=== PATIENT | male | born 1970 | race Hispanic/Latino ===

== ENCOUNTER 2022-10-04 17:16 | Emergency (ER) | payer OTHER ==
[~2022-10-04] VITALS: Ht 182.9 cm; Wt 117.9 kg
[2022-10-04 17:32] LABS: BASOPHILS % (AUTO) 0.6 % (0.0-5.0); EOSINOPHILS % (AUTO) 5.5 % (0.0-8.0); HEMATOCRIT 42.1 % (42-54); MEAN CORPUSCULAR HEMOGLOBIN 31.3 pg (27.0-33.0); MEAN CORPUSCULAR HGB CONC 34.7 g/dL (32.0-36.0); MEAN CORPUSCULAR VOLUME 90.3 fL (79-99); MONOCYTES % (AUTO) 4.9 % (3.0-13.0); NEUTROPHILS % (AUTO) 59.3 % (40.0-77.0); PLATELET COUNT (AUTO) 369 K/uL (130-400); RED BLOOD CELL COUNT(AUTO) 4.66 MIL/uL (4.50-6.20); RED CELL DISTRIBUTION WIDTH 12.1 % (11.0-15.5); WHITE BLOOD COUNT (AUTO) 10.8 K/uL (4.8-10.8)
[2022-10-04 17:43] LABS: ALBUMIN 3.4 g/dL (3.5-5.0); CREATININE 0.9 mg/dL (0.5-1.5)
[2022-10-04 17:46] LABS: POTASSIUM 2.7 mmol/L (3.5-5.1)
[2022-10-04 17:47] LABS: TOTAL PROTEIN, SERUM 7.3 g/dL (6.0-8.3)
[2022-10-04] MEDS ORDERED: POTASSIUM BICARB/CIT AC 25 MEQ TABLET.EFF PO STA (17:50)
[2022-10-04] MEDS ORDERED: POTASSIUM CHLORIDE 20 MEQ/100 ML BAG IV STA (17:50)
[2022-10-04 18:56] LABS: AMPHET/METH SCREEN,URINE NEGATIVE (NEGATIVE); BARBITURATE SCREEN, URINE NEGATIVE (NEGATIVE); BENZODIAZEPINES SCREEN,URINE POSITIVE (NEGATIVE); CANNABINOID SCREEN,URINE NEGATIVE (NEGATIVE); COCAINE SCREEN,URINE POSITIVE (NEGATIVE); OPIATE SCREEN,URINE NEGATIVE (NEGATIVE); PHENCYCLIDINE SCREEN,URINE NEGATIVE (NEGATIVE)
[2022-10-04 18:58] LABS: APPEARANCE,URINE CLEAR (CLEAR); BILIRUBIN,URINE NEGATIVE (NEGATIVE); COLOR,URINE YELLOW (YELLOW); GLUCOSE, URINE (UA) >=1000 mg/dL (NEGATIVE); KETONES,URINE 5 mg/dL (NEGATIVE); LEUKOCYTE ESTERASE ,URINE NEGATIVE Leu/uL (NEGATIVE); NITRATE,URINE NEGATIVE (NEGATIVE); OCCULT BLOOD,URINE NEGATIVE (NEGATIVE); PH,URINE 5.5 (5.0-8.0); PROTEIN,URINE NEGATIVE (NEGATIVE); UROBILINOGEN,URINE 0.2 mg/dL (0.2-1.0)
[2022-10-04 18:59] LABS: MUCUS,URINE RARE LPF (None Seen); SQUAMOUS EPITHELIAL CELL,UR RARE /HPF (0-2)
[2022-10-04] MEDS: MAGNESIUM 2GM PREMIX 50ML 50 ML IV SCH ×2 (19:08→22:09)
[2022-10-04] MEDS ORDERED: LORAZEPAM 2 MG/ML 1 ML VIAL IVP ONE (21:30)
[2022-10-04 21:53] LABS: ALBUMIN 2.9 g/dL (3.5-5.0); MAGNESIUM 1.6 mg/dL (1.80-2.40); POTASSIUM 3.3 mmol/L (3.5-5.1); TOTAL PROTEIN, SERUM 6.2 g/dL (6.0-8.3)
[2022-10-04] MEDS ORDERED: POTASSIUM BICARB/CIT AC 25 MEQ TABLET.EFF PO ONE (22:30)
[2022-10-04] MEDS ORDERED: MAGNESIUM 2GM PREMIX 50ML 50 ML IV SCH (22:30)
[2022-10-05 00:03] VITALS: BP 127/65
== END 2022-10-05 00:24 | disposition home or self-care (01) ==
LOC: EDH 17:16
DX: F14.10 Cocaine abuse, uncomplicated (principal); F10.10 Alcohol abuse, uncomplicated; I10 Essential (primary) hypertension
CPT/HCPCS: 99285; 96374; 71045; 96361; 96375; 83735 ×2; 84484 ×2; 80305; 85025; 36415; 96376; 93005; 81001; 80053 ×2; J3475 ×2; J2060; J3480

== ENCOUNTER 2023-12-11 07:00 | Day surgery (SDC) | payer OTHER ==
[2023-12-09 09:07] LABS: BASOPHILS % (AUTO) 1.1 % (0.0-5.0); EOSINOPHILS # (AUTO) 0.46 K/uL (0.00-0.70); EOSINOPHILS % (AUTO) 4.9 % (0.0-8.0); HEMATOCRIT 42.3 % (42-54); IMMATURE GRANULOCYTE ABSOLUTE 0.05 K/uL (0-1); LYMPHOCYTES # (AUTO) 3.6 K/uL (1.0-4.8); LYMPHOCYTES % (AUTO) 38.5 % (21.0-51.0); MEAN CORPUSCULAR HEMOGLOBIN 30.7 pg (27.0-33.0); MEAN CORPUSCULAR VOLUME 87.8 fL (79-99); MONOCYTES # (AUTO) 0.6 K/uL (0.1-1.0); MONOCYTES % (AUTO) 6.7 % (3.0-13.0); NEUTROPHILS # (AUTO) 4.5 K/uL (1.8-7.7); NEUTROPHILS % (AUTO) 48.3 % (40.0-77.0); PLATELET COUNT (AUTO) 348 K/uL (130-400); RED BLOOD CELL COUNT(AUTO) 4.82 MIL/uL (4.50-6.20); RED CELL DISTRIBUTION WIDTH 12.3 % (11.0-15.5); WHITE BLOOD COUNT (AUTO) 9.4 K/uL (4.8-10.8)
[2023-12-09 09:16] VITALS: BP 158/86; PULSE 73; RESP 21
[2023-12-09 09:23] LABS: CREATININE 0.9 mg/dL (0.5-1.3); INR <= 0.93 (0.85-1.15); POTASSIUM 4.5 mmol/L (3.5-5.1); PROTHROMBIN TIME 10.3 SEC (9.6-11.6)
[~2023-12-11] VITALS: Ht 177.8 cm; Wt 119.6 kg
[2023-12-11] VITALS (16 sets, daily range): BP systolic 110–142; BP diastolic 60–88; PULSE 70–86; RESP 14–18
[~2023-12-11 07:00] MED LIST: CIME400T PO; HYDR-3422 PO; HYDR50TA PO; LISI40TA9 PO; PARO10TA71 PO
[2023-12-11] MEDS ORDERED: CEFAZOLIN SODIUM 2 GM VIAL ONE (07:22)
[2023-12-11] MEDS ORDERED: CEFAZOLIN SODIUM 1 GM VIAL ONE (07:23)
[2023-12-11] MEDS ORDERED: FAMOTIDINE 20MG VIAL IV ONE (07:33)
[2023-12-11] MEDS ORDERED: HYDROMORPHONE 1 MG INJ ONE (07:33)
[2023-12-11] MEDS ORDERED: PHENYLEPHRINE HCL 10 MG/ML 1ML VIAL IV ONE (07:41)
[2023-12-11] MEDS ORDERED: SUCCINYLCHOLINE CHLORIDE 20 MG/ML 10 ML VIAL ONE (07:45)
[2023-12-11] MEDS ORDERED: ROCURONIUM BROMIDE 10MG/1ML 5ML VL ONE (07:45)
[2023-12-11] MEDS ORDERED: LIDOCAINE PF 100MG/5ML (2%) SYRINGE 5ML ONE (07:45)
[2023-12-11] MEDS ORDERED: FENTANYL CITRATE PF 50 MCG/1 ML 5ML AMP IV ONE (07:45)
[2023-12-11] MEDS ORDERED: MIDAZOLAM HCL 1 MG/ML 2ML VIAL ONE (07:47)
[2023-12-11] MEDS ORDERED: PROPOFOL 10 MG/ML 20ML VIAL IV ONE (07:48)
[2023-12-11] MEDS: CEFAZOLIN SODIUM 2 GM VIAL IVPB ONE (08:33)
[2023-12-11] MEDS ORDERED: BUPIVACAINE/PF 0.5% 30ML VIAL ONE (08:47)
[2023-12-11] MEDS ORDERED: NEOSTIGMINE METHYLSULFATE 1MG/ML IV ONE (09:30)
[2023-12-11] MEDS: ONDANSETRON 4MG INJ ONE ×2 (10:03→10:26)
[2023-12-11] MEDS: MEPERIDINE-PF 25 MG/ML SYG ONE (10:04)
[2023-12-11] MEDS: LACTATED RINGERS 1000ML 1,000 ML IV ONE (10:07)
[2023-12-11] MEDS: HYDROMORPHONE 1 MG INJ ONE (10:27)
== END 2023-12-11 11:31 | disposition home or self-care (01) ==
LOC: DAH 07:00
PROVIDERS: ATTEND Surgery
DX: K42.0 Umbilical hernia with obstruction, without gangrene (principal); I10 Essential (primary) hypertension; K21.9 Gastro-esophageal reflux disease without esophagitis; Z83.3 Family history of diabetes mellitus; Z82.49 Family history of ischemic heart disease and other diseases of the circulatory system; Z79.899 Other long term (current) drug therapy; Z90.49 Acquired absence of other specified parts of digestive tract
CPT/HCPCS: 80048; 85025; 85610; 85730; 36415; 49594; 88302; 93005; A6260; A4663; A4452; C1781; J7120; J3490 ×2; J3010; J0690 ×3; J1170 ×2; J0330; J2001; J2250; J2704; J2405 ×2; J2710; J0665 ×2; J2175; J2371; A4215; A4223; A4213; A4222; A4221; A4600